=== PATIENT | female | born 1985 | race Caucasian/White ===

== ENCOUNTER 2017-02-12 10:01 | Emergency (ER) | payer OTHER ==
[2017-02-12 10:28] VITALS: TEMP 98.2
[2017-02-12] MEDS ORDERED: METOCLOPRAMIDE 10 MG/2 ML VIAL IVP ONE (10:29)
[2017-02-12] MEDS ORDERED: NS 1,000 ML IV ONE ×2 (10:29→11:03)
[2017-02-12] MEDS ORDERED: METOCLOPRAMIDE 10 MG/2 ML VIAL ONE (10:30)
[2017-02-12 10:36] LABS: % IMMATURE GRANULYOCYTES 0.5 % (0.0-1.1); ABSOLUTE IMMATURE GRANULOCYTES 0.02 10^3/uL (0.00-0.10); ADD DIFF? NO; ADD MORPH? NO; ADD SCAN? YES; ATYPICAL LYMPHOCYTE FLAG 0 (0-99); FRAGMENT RBC FLAG 0 (0-99); HEMATOCRIT 45.5 % (38.0-47.0); HEMOGLOBIN 15.8 g/dL (12.6-16.3); LIPEMIA HEMOLYSIS FLAG 90 (0-99); MEAN CELL HEMOGLOBIN 30.8 pg (27.9-34.1); MEAN CELL HEMOGLOBIN CONCENTR. 34.7 g/dL (32.4-36.7); MEAN CELL VOLUME 88.7 fL (81.5-99.8); PLATELET CLUMPS FLAG 0 (0-99); PLATELET COUNT 295 10^3/uL (150-400); RED BLOOD CELL COUNT 5.13 10^6/uL (4.18-5.33)
--- NOTE | 2017-02-12 10:50 | UCPHY ---
H & P Patient Type: New Chief Complaint Nursing Narrative: nausea vomiting and diarrhea since Time Seen by Provider: 02/12/17 10:04 HPI/ROS: CHIEF COMPLAINT: Nausea, vomiting and diarrhea History by patient HISTORY OF PRESENT ILLNESS: 31-year-old woman presents with 3 days of vomiting and diarrhea. Patient states it began with vomiting and this is improved but now she is having copious, nonbloody diarrhea. She took some Zofran at home with some relief of the nausea. She was seen in urgent care last night and told they would put an IV in her but they were about to close. She has been drinking Pedialyte at home to rehydrate. She has been having difficulty eating because she has no appetite. She complains of crampy abdominal pain associated with the diarrhea. She has no known ill exposures and has not been on recent antibiotics however she works as an ICU nurse. She denies any fever but also has body aches. REVIEW OF SYSTEMS: As in HPI, and all other systems reviewed and are negative Source: Patient - Personal History LMP (Females 10-55): 8-14 Days Ago Current Tetanus/Diphtheria Vaccine: Yes Current Tetanus Diphtheria and Acellular Pertussis (TDAP): Yes Tetanus Vaccine Date: last 10 years - Medical/Surgical History Hx Asthma: No Hx Chronic Respiratory Disease: No Hx Diabetes: No Hx Cardiac Disease: No Hx Renal Disease: No Hx Cirrhosis: No Hx Alcoholism: No Hx HIV/AIDS: No Hx Splenectomy or Spleen Trauma: No Other PMH: normally healthy per pt - Family History Significant Family History: No pertinent family hx - Social History Smoking Status: Never smoked Additional Social History: ICU nurse, here with her partner - Physical Exam Exam: General Appearance: Alert, slightly uncomfortable appearing. Eyes: Pupils equal and round no pallor or injection. ENT, Mouth: Mucous membranes slightly dry Respiratory: Normal, effort, There are no retractions, lungs are clear to auscultation. Cardiovascular: Regular rate and rhythm. Gastrointestinal: Abdomen is soft and nontender, no masses, bowel sounds decreased but present. Neurological: Awake, alert and oriented x 3, no pronator drift, normal gait, no pronator drift Skin: Warm and dry, no rashes. Musculoskeletal: Neck is supple nontender. Extremities are symmetrical, full range of motion. Psychiatric: Patient has normal affect, there is no agitation. Constitutional: Initial Vital Signs Temperature (C) 36.8 C 02/12/17 10:25 Heart Rate 104 H 02/12/17 10:25 Respiratory Rate 18 02/12/17 10:25 Blood Pressure 102/69 02/12/17 10:25 O2 Sat (%) 96 02/12/17 10:25 O2 Delivery Mode Room Air Allergies/Adverse Reactions: No Known Allergies Allergy (Unverified 02/12/17 10:28) Home Medications: Medication Instructions Recorded NK [No Known Home Meds] 02/12/17 Medical Decision Making ED Course/Re-evaluation: 31-year-old ICU nurse presents with 4 days of nausea, vomiting and copious diarrhea. Clinically the patient appears dehydrated. She was given bolus of IV fluids with improvement in her tachycardia. Labs are unremarkable. Stool was sent for stool pathogens and C difficile and results are pending at time of discharge. Patient was feeling better. She was discharged home and will follow up with her if C difficile toxin is positive. Patient understands and is agreeable to this plan. - Data Points Laboratory Results: Laboratory Results 02/12/17 10:25 02/12/17 10:25 02/12/17 02/12/17 02/12/17 10:30 10:25 10:25 WBC 3.80 10^3/uL 10^3/uL (3.80-9.50) RBC 5.13 10^6/uL 10^6/uL (4.18-5.33) Hgb 15.8 g/dL g/dL (12.6-16.3) Hct 45.5 % % (38.0-47.0) MCV 88.7 fL fL (81.5-99.8) MCH 30.8 pg pg (27.9-34.1) MCHC 34.7 g/dL g/dL (32.4-36.7) RDW 12.0 % % (11.5-15.2) Plt Count 295 10^3/uL 10^3/uL (150-400) MPV 9.0 fL fL (8.7-11.7) Neut % (Auto) 76.6 % H % (39.3-74.2) Lymph % (Auto) 15.3 % % (15.0-45.0) [place] % (Auto) 7.1 % % (4.5-13.0) Eos % (Auto) 0.0 % L % (0.6-7.6) Baso % (Auto) 0.5 % % (0.3-1.7) Nucleat RBC Rel Count 0.0 % % (0.0-0.2) Absolute Neuts (auto) 2.91 10^3/uL 10^3/uL (1.70-6.50) Absolute Lymphs (auto) 0.58 10^3/uL L 10^3/uL (1.00-3.00) Absolute Monos (auto) 0.27 10^3/uL L 10^3/uL (0.30-0.80) Absolute Eos (auto) 0.00 10^3/uL L 10^3/uL (0.03-0.40) Absolute Basos (auto) 0.02 10^3/uL 10^3/uL (0.02-0.10) Absolute Nucleated RBC 0.00 10^3/uL 10^3/uL (0-0.01) Immature Gran % 0.5 % % (0.0-1.1) Seg Neutrophils % 24 % % Band Neutrophils % 45 % % Lymphocytes % 25 % % Monocytes % 6 % % Immature Gran # 0.02 10^3/uL 10^3/uL (0.00-0.10) Absolute Seg Neuts 0.9 K/MM3 L K/MM3 (1.8-7) Absolute Band Neuts 1.7 K/MM3 H K/MM3 (0-0.7) Absolute Lymphocytes 1.0 K/mm3 K/mm3 (1.0-4.8) Absolute Monocytes 0.2 K/mm3 K/mm3 (0-0.8) Platelet Estimate ADEQUATE (ADEQ) Sodium 136 mEq/L mEq/L (134-144) Potassium 4.1 mEq/L mEq/L (3.5-5.2) Chloride 98 mEq/L mEq/L (97-110) Carbon Dioxide 22 mEq/l mEq/l (22-31) Anion Gap 16 mEq/L mEq/L (8-16) BUN 10 mg/dL mg/dL (7-23) Creatinine 0.8 mg/dL mg/dL (0.6-1.0) Estimated GFR > 60 Glucose 106 mg/dL H mg/dL (70-100) Calcium 9.1 mg/dL mg/dL (8.5-10.4) C. difficile Tox (PCR) Pending Medications Given: Discontinued Medications Sodium Chloride (Ns) 1,000 mls @ 0 mls/hr IV ONCE ONE PRN Reason: Wide Open Stop: 02/12/17 10:30 Last Admin: 02/12/17 10:29 Dose: 1,000 mls Sodium Chloride (Ns) 1,000 mls @ 0 mls/hr IV ONCE ONE PRN Reason: Wide Open Stop: 02/12/17 11:04 Last Admin: 02/12/17 11:04 Dose: 1,000 mls Metoclopramide HCl (Reglan Injection) 10 mg IVP EDNOW ONE Stop: 02/12/17 10:30 Last Admin: 02/12/17 10:30 Dose: 10 mg Departure - Departure Disposition: Home, Routine, Self-Care Clinical Impression: Diarrhea Qualifiers: Diarrhea type: presumed infectious Qualified Code(s): A09 - Infectious gastroenteritis and colitis, unspecified Condition: Good Instructions: Acute Diarrhea (ED) Additional Instructions: You were seen by Dr. Thelma Goldsmith today. Return for any worsening or new concerns. Continue drink plenty of fluids. We will contact you if your stool sample is positive for C difficile. Referrals: NONE *PRIMARY CARE P,. [Primary Care Provider] - As per Instructions - PQRS PQRS Measurement: NA
[2017-02-12 10:51] LABS: LEFT SHIFT FLG 300 (0-99)
[2017-02-12 10:55] LABS: ANION GAP 16 mEq/L (8-16); CALCIUM 9.1 mg/dL (8.5-10.4); CARBON DIOXIDE 22 mEq/l (22-31); CHLORIDE 98 mEq/L (97-110); CREATININE 0.8 mg/dL (0.6-1.0); GLOMERULAR FILTRATION RATE > 60; GLUCOSE 106 mg/dL (70-100); POTASSIUM 4.1 mEq/L (3.5-5.2); SODIUM 136 mEq/L (134-144)
[2017-02-12 11:04] VITALS: RESP 16
[2017-02-12 11:46] LABS: SCAN POSITIVE
[2017-02-12 11:54] LABS: PLATELET ESTIMATE ADEQUATE (ADEQ)
[2017-02-12 12:17] VITALS: BP 117/68; PULSE 90; O2SAT 99
== END 2017-02-12 12:16 | disposition home or self-care (01) ==
LOC: CED 10:01
DX: R19.7 Diarrhea, unspecified (principal); R11.2 Nausea with vomiting, unspecified; R00.0 Tachycardia, unspecified
CPT/HCPCS: 80048-PO; 85025-PO; 96361-PO; 96374-PO; 99204-PO; G0463-PO; J2765

== ENCOUNTER 2018-04-07 09:47 | Inpatient (IN) | payer OTHER ==
[2018-04-07] MEDS ORDERED: LORazepam 2 MG/ML INJ IVP ONE ×2 (10:07→15:30)
[2018-04-07 10:18] LABS: PLATELET COUNT 302 10^3/uL (150-400)
--- NOTE | 2018-04-07 10:22 | EDPHY ---
H & P Time Seen by Provider: 04/07/18 09:57 HPI/ROS: HPI Suicidal ideation, panic attack. 32-year-old female by private vehicle with her fiance. This patient has a history of panic attacks. They have been ongoing for several months. She was prescribed Lexapro 5 mg daily about 6 weeks ago. She reports that the Lexapro has been making her more panicked an feeling suicidal. These feelings have significantly increased over the last 2 days. She has not taken Lexapro for the last 2 days. She is an ICU nurse at [employer]. She has been feeling suicidal and describes having thoughts in her head which she does not want. She states that she has a plan to kill herself. She reports that her boyfriend is going away on a bachelor libertarian this weekend. She was going to steal some insulin from working overdose on insulin. ROS: Constitutional: No fever, no chills. No weakness. Eyes: No discharge. No changes in vision. ENT: No sore throat. No nasal congestion or rhinorrhea. Respiratory: No cough. No shortness of breath. Cardiac: No chest pain, no palpitations. Gastrointestinal: No abdominal pain, no vomiting, no diarrhea. Genitourinary: No hematuria. No dysuria or increased frequency with urination. Musculoskeletal: No back pain. No neck pain. No myalgias or arthralgias. Skin: No rashes. Neurological: No headache. No focal weakness or altered sensation. Past medical history: Panic attacks, IUD. Social history: Nonsmoker. Drinks alcohol socially. As above. Her fiancee brought her to the emergency department. Denies IV drugs or street drugs. Physical Exam: General Appearance: Alert, very panic, emotionally labile, hyperventilating. This patient is responding to questions appropriately and in full sentences. This patient appears well-hydrated and well-nourished. Eyes: Pupils equal and round no pallor or injection. No lid edema, erythema or injection. ENT, Mouth: Mucous membranes are moist. The pharyngeal tissues are unremarkable. No edema or swelling. No asymmetry suggestive of abscess. No erythema or exudates. Respiratory: There are no retractions, lungs are clear to auscultation with good air movement bilaterally. Hyperventilating. Cardiovascular: Regular rate and rhythm. No murmur. Gastrointestinal: Abdomen is soft and nontender, no masses, bowel sounds normal. No focal tenderness at McBurney's point. No Palomino sign. Neurological: Motor sensory function is grossly intact. Cranial nerves are normal. Gait is normal. Skin: Warm and dry, no rashes. Musculoskeletal: Neck is supple and nontender. Extremities are symmetrical. All joints range without pain or impingement. Psychiatric: As above. Database: EKG: Imaging: Procedures: Emergency department course: Vital signs reviewed. She is moderately hypertensive and tachypneic secondary to panic attack. Vital signs otherwise normal. IV placed. Appropriate blood work sent. I placed her on a detainer at 10:20 a.m.. She will be placed on an M1 hold shortly for suicidal ideation. She was given 0.5 mg of IV Ativan. This will be repeated as needed for anxiety reaction. Differential Diagnosis: The differential diagnosis on this patient includes but is not limited to medication reaction, suicidal ideation, major depression, situational depression , panic attack. This represents a partial list of diagnoses considered. These considerations are based on history, physical exam, past history, reassessment and diagnostic testing. Smoking Status: Never smoked Constitutional: Initial Vital Signs Temperature (C) 36.3 C 04/07/18 09:52 Heart Rate 75 04/07/18 09:52 Respiratory Rate 28 H 04/07/18 09:52 Blood Pressure 145/97 H 04/07/18 09:52 O2 Sat (%) 99 04/07/18 09:52 O2 Delivery Mode Room Air Allergies/Adverse Reactions: No Known Allergies Allergy (Verified 04/07/18 09:50) Home Medications: Medication Instructions Recorded Ativan 04/07/18 Lexapro 04/07/18 MIRENA 04/07/18 Medical Decision Making - Data Points Laboratory Results: Laboratory Results 04/07/18 10:10 04/07/18 04/07/18 04/07/18 10:10 10:10 10:10 WBC 6.01 10^3/uL 10^3/uL (3.80-9.50) RBC 5.01 10^6/uL 10^6/uL (4.18-5.33) Hgb 15.3 g/dL g/dL (12.6-16.3) Hct 43.7 % % (38.0-47.0) MCV 87.2 fL fL (81.5-99.8) MCH 30.5 pg pg (27.9-34.1) MCHC 35.0 g/dL g/dL (32.4-36.7) RDW 12.5 % % (11.5-15.2) Plt Count 302 10^3/uL 10^3/uL (150-400) MPV 8.8 fL fL (8.7-11.7) Neut % (Auto) 48.7 % % (39.3-74.2) Lymph % (Auto) 40.4 % % (15.0-45.0) [place] % (Auto) 8.7 % % (4.5-13.0) Eos % (Auto) 1.7 % % (0.6-7.6) Baso % (Auto) 0.5 % % (0.3-1.7) Nucleat RBC Rel Count 0.0 % % (0.0-0.2) Absolute Neuts (auto) 2.93 10^3/uL 10^3/uL (1.70-6.50) Absolute Lymphs (auto) 2.43 10^3/uL 10^3/uL (1.00-3.00) Absolute Monos (auto) 0.52 10^3/uL 10^3/uL (0.30-0.80) Absolute Eos (auto) 0.10 10^3/uL 10^3/uL (0.03-0.40) Absolute Basos (auto) 0.03 10^3/uL 10^3/uL (0.02-0.10) Absolute Nucleated RBC 0.00 10^3/uL 10^3/uL (0-0.01) Immature Gran % 0.0 % % (0.0-1.1) Immature Gran # 0.00 10^3/uL 10^3/uL (0.00-0.10) Sodium Pending Potassium Pending Chloride Pending Carbon Dioxide Pending Anion Gap Pending BUN Pending Creatinine Pending Estimated GFR Pending Glucose Pending Calcium Pending Beta HCG, Qual Pending Ethyl Alcohol Pending Medications Given: Discontinued Medications Lorazepam (Ativan Injection) 0.5 mg IVP EDNOW ONE Stop: 04/07/18 10:08 Last Admin: 04/07/18 10:13 Dose: 0.5 mg Departure - Departure Disposition: Other Psych, Not [facility] Clinical Impression: Panic attack, Suicidal ideation
[2018-04-07] MEDS ORDERED: MAG HYDROX/AL HYDROX/SIMETH 30 ML UDCUP PO PRN (18:47)
[2018-04-07] MEDS ORDERED: ACETAMINOPHEN 325 MG TAB PO PRN (18:47)
[2018-04-07] MEDS ORDERED: MAGNESIUM HYDROXIDE 30 ML UDCUP PO PRN (18:47)
[2018-04-08] MEDS: CHOLECALCIFEROL VIT D3 2,000 UNITS TAB/CAP PO SCH (08:23)
--- NOTE | 2018-04-08 09:55 | GCON ---
[f rep st] CONSULTATION DATE OF CONSULTATION: 04/08/2018 REASON FOR CONSULTATION: Medical opinion regarding stability for inpatient psychiatric hospitalizati on. HISTORY: The patient is a 32-year-old female, who was admitted from the emergency room last night. She has a history of panic disorder. She was recently started on Lexapro. The Lexapro has worsened her panic and she is now feeling suicidal. This escalated over the last 2 days. She is an ICU nurse at [employer]. She had a plan to steal insulin at work and use it to try to kill herse lf. She never did this and instead came to the emergency room. Upon presentation to the emergency r oom, she was hypertensive and tachycardic in an active panic attack. This responded to Ativan. PAST MEDICAL HISTORY: 1. Panic disorder. 2. Vitamin D deficiency. MEDICATIONS: Please see computer record for full detailed list. ALLERGIES: No known drug allergies. SOCIAL HISTORY: No smoking. Social alcohol. She is an ICU nurse. Her fiancee brought her to the E R. REVIEW OF SYSTEMS: A complete review of systems obtained. Review of systems negative for constituti onal, HEENT, GI, pulmonary, cardiovascular, , hematology, skin, endocrine, psych, except for positi ves and negatives as in HPI. FAMILY HISTORY: Reviewed, noncontributory to presenting complaint. PHYSICAL EXAMINATION: GENERAL: Well-developed, well-nourished female, no acute distress. She is te arful, but not in any physical distress. VITAL SIGNS: Temp is 36.8, pulse is 51, blood pressure 106 /57, saturating 96% on room air. EYE Examination: Normal conjunctivae, pupils are equal react to li ght. ENT: Normal ears and nose. Hearing intact. Normal teeth. Oropharynx moist. NECK: Trachea midline. No thyromegaly. CHEST: Normal respiratory effort. LUNGS: Clear to auscultation bilatera lly. CARDIOVASCULAR: Regular rate and rhythm. No murmur. No lower extremity edema. ABDOMEN: Sof t, nontender. No hepatosplenomegaly. SKIN: Warm, dry, intact. No rash. MUSCULOSKELETAL: No cyan osis or clubbing. Strength 5/5 upper and lower extremities. NEUROLOGIC: Cranial nerves intact. No rmal sensation to light touch. PSYCHIATRIC: Alert and oriented x3. Tearful but appropriate, flip ative. Normal judgment and insight. Normal memory. LABORATORY DATA: White count 6.1, hematocrit 43.7, platelets 302. Sodium 141, potassium 4.3, chlori de 104, bicarb 22, BUN 16, creatinine 0.9, glucose 95, Tox screen is negative. Beta HCG is negative. MEDICAL RECORD REVIEW: I reviewed medical records including all documentation up until this point of her hospitalization. She presented to the ER yesterday morning at 10:00 am. Details of her hospita lization have been summarized above. ASSESSMENT/PLAN: 1. Suicidal ideation with associated panic disorder. She is now an inpatient psych and is medically appropriate to continue. I do not see any active medical conditions at this time that would prohibi t this. 2. Vitamin D deficiency. This was diagnosed by her primary care provider with a low vitamin D level . She should continue her vitamin D supplement during her stay. 3. Tachycardia and hypertension. This was clearly due to her panic attack as it is now resolved. T he patient is currently normotensive. Thank you very much for this consultation. Please re-consult Internal Medicine if any new medical is sues do arise. /[id number]/MODL
--- NOTE | 2018-04-08 14:01 | BAPA ---
[f rep st] ADMISSION PSYCHIATRIC ASSESSMENT DATE OF SERVICE: 04/08/2018 CHIEF COMPLAINT: "I had panic attacks last night and I don't trust myself. I started having panic attacks a few months ago, but since then I was prescribed and started Lexapro. I have had more panic attacks, and now for the past 2 weeks, I have been having suicidal thoughts." HISTORY OF PRESENT ILLNESS: The patient is a 32-year-old woman who presented to the emergency department with her and a friend. The patient had gone to see her primary care physician on Tuesday morning, 2017, described her symptoms. After her visit with the PCP, it was recommended that the patient come to the ED for a psychiatric evaluation. The patient states that over the last several months since she started taking Lexapro which was prescribed by her PCP she has had increased anxiety, more panic, and states that she started having suicidal thoughts over the past several weeks. 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 She says that she stopped taking the Lexapro several days ago. When this MD met with the patient on the inpatient behavioral services unit on , the patient denied having current thoughts of suicide, that she had no plan or intent to hurt herself or anyone else. MD met with the patient in her room with the clinical care coordinator, Kimberly, present as well as the patient's and a personal friend who were here for visiting. On the unit, the patient has been attending groups, eating well. She said that she slept 8 hours last night which was better sleep then she has been getting prior to admission. She says that getting the Ativan in the emergency department helped her to relax and has helped her to feel less anxious and to get better sleep. The patient says that she is very sensitive to medications and that medications "really mess with me. " She says that was the reason that she had taken low doses of Lexapro. She was only on 5 mg, but even that dose she said was intolerable due to increased anxiety, nausea, vomiting, and increased thoughts of suicide. The patient had also been prescribed Ativan 0.5 to 2 mg p.r.n. by her PCP, but she says she was reluctant to take the Ativan and was only taking a quarter of a tablet. The patient says that the Lexapro was making her throw up every morning after she took it which is a similar side effect that she has had with other SSRIs in the past. The patient says that she would rather not be taking any medications, says that she wants to "try other ways" of managing her anxiety. She says that she has been doing things like yoga, meditation, and relaxation techniques such as deep breathing, but says that over the last several weeks things have just gotten worse. She says she is not sure if it is because of the Lexapro or if they would have gotten worse even if she had not been taking the SSRI. She does admit that she is under a lot of stress due to her upcoming wedding ceremony which is happening at the end of this month. The patient says that her mood is better today after getting a good night's sleep and seeing her . She says that she does not feel as anxious or depressed. She denies feeling sad, hopeless, helpless, or worthless. She denies any thoughts, plans, or intents to hurt herself or anyone else. PAST PSYCHIATRIC HISTORY: The patient was diagnosed with seasonal affective disorder about 7 years ago when she was living in [place]. During that time, she took Effexor which she says she was on for 2-1/2 years, but stopped taking Effexor 4 years ago when she moved to [place]. She says that she had been doing well, not having any symptoms of depression until a few months ago. She says she was prescribed 5 mg of Lexapro by her PCP about 6 weeks ago and given Ativan p.r.n. for anxiety. She says she is reluctant to take medications because she usually suffers more serious side effects from medications than other people. She says she has taken Zoloft in the past, but was extremely nauseous. She says since she started on the Lexapro she usually throws up every morning after she takes it and says that she also had the same feelings of nausea and increased vomiting even when she was on Effexor. The patient says that she saw a therapist when she was initially diagnosed with depression about 7 years ago when in [place], but does not currently have a therapist. She is also not seeing a psychiatrist. She has always gotten her antidepressant medications from her primary care physician. The patient denies any prior suicide attempts. She has never been hospitalized in a psychiatric facility. Currently, the patient has no mental health provider. She got her Lexapro prescription from her primary care doctor. She stopped taking it several days ago. ALLERGIES: The patient has no known drug allergies. CURRENT MEDICATIONS: Currently, the patient is only taking vitamin D3 2000 units daily. LABORATORIES: Done in the [facility] ED. Her white cell count was 6.01, hemoglobin 15.3, hematocrit 43.7, platelet count 302. Sodium 141, potassium 4.3 , chloride 104, BUN 16, creatinine 0.9, glucose 95. Beta hCG was negative. Urine drug screen was negative for all substances of abuse. Ethyl alcohol was less than 10. PAST MEDICAL HISTORY: The patient denies any chronic medical conditions. She denies any past surgical history. SOCIAL HISTORY: The patient was 3 months ago, but she says that she and her are planning a wedding ceremony at the end of April. They have no children. She lives together with her , and they have adopted a Labrador Retriever puppy that they are training to be a service animal for sight -impaired people. The patient's parents live in [place]. She has 2 older brothers who live out of state. She says that she has friends, coworkers, and family who are supportive. The patient has graduated with a bachelor's degree in nursing. She is has worked full-time at [employer] for 3 years. Recently, she has been working as an ICU nurse, 12 hour shifts. She says that her job is very stressful, that she has had difficulty managing the stress at work recently when she has been more depressed and anxious. The patient tries to manage her anxiety with regular exercise. She also does yoga and meditation to help relax. FAMILY HISTORY: The patient says that her paternal aunt was an alcoholic and she had a paternal uncle with a heroin addiction. She denies any other mental illness or substance use disorders in the family. SUBSTANCE ABUSE HISTORY: Patient says that she started smoking marijuana when she was in high school and used it on a regular basis. She says that when she started college she stopped smoking pot. The patient denied any other substance use until a few days ago. She said she started using marijuana again as a means of reducing stress. She also says that over the past few weeks she has increased her alcohol consumption. Says that for several weeks she has been drinking between 1-4 drinks per night on a daily basis. TRAUMA HISTORY: Patient denies any history of emotional, physical, or sexual abuse. LEGAL HISTORY: Patient denies any legal issues. MENTAL STATUS EXAMINATION: This is a tall, well-developed, appropriately groomed woman sitting on her bed with her and their service puppy in the room. optometric coordinator Kimberly is also present as well as a family friend. The patient is alert and oriented x4. Her affect is euthymic. She is pleasant and cooperative. She makes good eye contact. Her speech rate and volume are both normal. She denies feeling sad, helpless, hopeless, worthless, or anxious this morning. She denies having any panic episodes since she has been admitted. She denies any thoughts plans or intents to hurt herself or anyone else. She also denies any psychotic symptoms. There is no evidence of tate or psychosis. Her thought process is linear and goal directed. Her intellectual function appears to be average based upon her vocabulary, fund of knowledge, education, and work history. Her insight and judgment are both fair. IMPRESSION: 1. Major depressive disorder, recurrent, severe. 2. Generalized anxiety disorder. 3. Panic disorder without agoraphobia by history. 4. Rule out substance induced mood disorder. 5. Cannabis use disorder, unknown severity. 6. Alcohol use disorder, unknown severity. 7. Recent marriage, upcoming wedding ceremony that is adding a lot of stress for the patient. 8. Work related stress. The patient works as an ICU nurse at [employer]. 9. Lack of mental health services. PLAN: 1. Admit patient to the inpatient Behavioral Health Services Unit on [address] on an M1 hold. 2. Monitor closely for safety. The patient is currently not exhibiting any unsafe behaviors. She is able to contract for safety. She denies any thoughts , plans, or intent to harm herself or anyone else. 3. Continue to monitor and observe the patient. Currently, the patient is saying that she feels "much better." She is denying feeling depressed or anxious. She reports that she slept "the best" last night that she has in several weeks. 4. The patient states that she would prefer not to take any medications because all of the antidepressants and antianxiety medication she has taken in the past "really messed me up." She reports chronic nausea and vomiting on SSRIs as well as on Effexor. The patient states that she would prefer to try "alternative methods" to manage her stress, anxiety, and mood. The clinical care coordinator, Kimberly, talked to the patient at length about dialectical behavioral therapy and the outpatient DBT group that meets at [facility]. The patient said that she would very much be interested in that. The patient is currently on FMLA from her job, so she has the time to attend group 3 times a week and says that is something she would like to pursue. MD and Bark Press Operator also recommended that the patient get connected with outpatient mental health services. Bark Press Operator said that she would provide the patient referrals for individual therapists which she could also get through the outpatient clinic at [facility]. The patient said she would be interested in doing that and working on some more stress reduction techniques as well as addressing some of the social stressors that have been exacerbating her anxiety and feeding her depression over the last several weeks. MD did talk to the patient at length about the risks, benefits, and side effects of antidepressants including SSRIs and SNRIs. The only type of antidepressant the patient has tried is Wellbutrin. So, the MD talked about how Wellbutrin was different than the SSRIs and the SNRIs. The MD also emphasize that the SSRIs, SNRIs, and Wellbutrin were the first-line treatment for anxiety disorders. In addition to being antidepressants, they are anxiolytics. The patient states that she does not like to take medications if she does not have to and says that she would like to try other methods of reducing stress and alleviating her anxiety and thinks that this would go a long way toward improving her mood. Says that she is also worried that antidepressants recently have caused her to have increased suicidal thoughts, and she wants to avoid taking any type of antidepressant. said that this is something that the patient could reconsider in the future. If she decides to pursue cognitive behavioral therapy or other types of treatment for stress reduction and is followed by an outpatient therapist, her therapist could refer her to a psychiatrist if and when the patient and/or the therapist felt like medications would be appropriate or necessary. The patient said that she would be willing to consider going back on medications at some point in the future, but would like to try individual and group therapy first. 5. Estimated length of stay is 2-3 days. Bark Press Operator is working on providing the patient a followup and will schedule an intake evaluation in the [facility] outpatient Clinic for both individual and DBT group therapy. /[id number]/MODL MTDD
[2018-04-09] MEDS: LORazepam 0.5 MG TAB PO PRN ×2 (01:08→20:14)
[2018-04-09] MEDS: CHOLECALCIFEROL VIT D3 2,000 UNITS TAB/CAP PO SCH (08:34)
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
[2018-04-10 06:30] VITALS: BP 128/54
[2018-04-10] MEDS: CHOLECALCIFEROL VIT D3 2,000 UNITS TAB/CAP PO SCH (08:28)
--- NOTE | 2018-04-10 18:35 | BDS ---
[f rep st] BEHAVIORAL HEALTH DISCHARGE SUMMARY Date of admission: 04/07/18 Date of discharge: 04/10/18 REASON FOR ADMISSION: May be found in the [facility] evaluation dated 04/07/2018, at 1642 hours. You also may find information regarding reason for admission in ED note dated 04/07/2018, and also, the psychiatric assessment and history dated , by Dr. Dunham. Per [facility] report, the patient reported that she had a panic attack last night and did not trust herself. She started having panic attacks a few months ago and started taking Lexapro and reported that she continued to have more panic attacks, and over the last few weeks, she has been having suicidal thoughts. She said that she has tried everything and nothing worked and so she sought help due to her suicidal ideation. ADMISSION DIAGNOSES: panic disorder, suicidal ideation. PHYSICAL EXAMINATION: On admission, the patient was seen for a physical exam on 04/07/2018, at 0957. The patient was cleared medically to be admitted for inpatient psychiatric care. Please see the ED short dictation for further information regarding the physical exam. ADMISSION LABORATORY DATA: Hematology 04/07/2018, was within normal limits. Chemistry 04/07/2018, within normal limits. test negative. Toxicology was negative for all substances. HOSPITAL COURSE: The most prominent symptoms and behaviors while the patient was here were the following: Symptoms of anxiety and the patient reported a history of panic attacks. MENTAL STATUS EXAMINATION: At admission, this is a tall well-developed, appropriately groomed woman sitting on her bed with her and their service puppy in the room. Gis Developer, Kimberly, is also present as well as a family friend. The patient is alert, oriented x4. Her affect is euthymic. She is pleasant and cooperative. She makes good eye contact. Her speech rate and volume are both normal. She denies feelings of sad, helpless, hopeless, worthless, or anxious this morning. She denies having any panic episodes since she has been admitted. She denies any thoughts, plans , or intent to hurt herself or anyone else. She also denies any psychiatric symptoms. There is no evidence of tate or psychosis. Her thought process is linear and goal directed. Her intellectual function appears to be average based upon her vocabulary, fund of knowledge, education, work history. Her insight and judgment are both fair. TARGET SYMPTOMS DURING HOSPITALIZATION: Panic and anxiety symptoms. PLAN OF TREATMENT: Modalities utilized were as follows: 1. Milieu and group therapy. 2. Ativan 0.5-1 mg p.o. q.4 h. p.r.n. was started to target anxiety symptoms. Was tolerated with no report of side effects and with good response. The patient reported that she was prescribed Ativan on an outpatient basis and was at 0.5 mg p.o. daily p.r.n. and her primary care provider recommended that she take the medication as needed for panic attacks. The patient has improved considerably with no signs of psychiatric symptoms and no psychiatric symptoms expressed. Patient reports she has improved since her admission. States to be in stable condition. Feels safe to discharge and contract for safety. Patient's response to treatment was good. There were no adverse or unexpected results of treatment. The patient was safe throughout her stay, active in her treatment. Patient engaged in groups and was appropriate with staff. The treatment team consensus at the time of discharge is the patient is in stable condition and is safe to discharge today. CONDITION AT DISCHARGE: The patient is in stable condition, is no longer a danger to herself or others, and is not gravely disabled due to mental illness. Patient is no longer in need of inpatient level of care and can be safely and effectively treated within the community. The patient's level of risk at time of discharge is low based on the risk assessment following this discharge summary below. MENTAL STATUS EXAMINATION: The patient is casually dressed and with good hygiene and looks stated age. Patient is sitting, posture is upright , and position is relaxed. The patient appears awake, alert, and responds appropriately and reasonably during interview. Patient is engaged, relates well to interviewer, and emotional facial expression is appropriate to situation and changes appropriately with topic. Patient is cooperative, makes comfortable eye contact, and movements are voluntary, deliberate, coordinated, and smooth, and even with no inappropriate movements. Patient makes laryngeal sounds effortlessly and shares conversation appropriately. Pace of conversation is appropriate and stream of talking is fluent. Articulation is clear and understandable. Word choice is effortless and appropriate for education level. Patient complete sentences, occasionally pausing to think. Rate and volume are appropriate for interview and setting. Patient reports mood as euthymic. Patient's affect is stable and full, variable range congruent with mood, and appropriate to speech and circumstances. Patient has linear, logical thinking with no loose associations, tangential thought, thought blocking, concrete thinking, or any other signs of formal thought disorder. Patient denies suicidal and homicidal ideation and denies hallucinations and delusions. The patient appears to be a reliable historian with sound judgment and good insight into her condition. Patient has no apparent dysfunction in recent or remote memory noted and no evidence of gross cognitive function noted at any point during the discharge interview. DISCHARGE DIAGNOSIS: Panic disorder. DISCHARGE MEDICATIONS: Klonopin 0.25 to 0.5 mg p.o. at bedtime. Patient requests RX for #21 0.5 mg tablets and states she plans to follow-up with outpatient psychiatric provider. RX provided per patient request at time of discharge. This interviewer provided medication education to both patient and patient's fiance during family meeting prior to discharge. DISPOSITION: The patient will return home with her fiancee. The patient's fiance arrived today to pick her up at discharge. FOLLOWUP: The transitional care nurse reports the appropriate outpatient followup services have been established and outpatient appointments have been scheduled. sales account coordinator met with the patient prior to her discharging to review the recommendations and referrals for outpatient, including DBT and CBT and the patient reports that she will make this phone call to schedule these appointments. The patient received written instructions and times and dates of outpatient followup appointments. The following followup recommendations were provided to the patient at discharge : 1. Continue psychotropic medications as prescribed and attend appointments as scheduled. 2. Report any side effects to a psychiatric outpatient provider, a primary care provider, or other healthcare professional. 3. Address any questions or problems concerning psychotropic medications with the psychiatric outpatient provider, a primary care provider, or other healthcare professional. 4. Contact [facility] or [facility] or go to the nearest emergency room if you are ever a danger to yourself, others or unable to care for yourself. 5. As soon as possible establish routine medication management treatment with a psychiatric provider, establish routine therapy appointments and follow up with a primary care provider. LEGAL COURSE: Patient was admitted on a M1 hold due to being a danger to herself. Patient did sign in for voluntary hospitalization and patient discharged today independently and voluntarily. ATTITUDE AT TIME OF DISCHARGE: The patient's attitude was positive at time of discharge and patient reports looking forward to discharging today. The patient reports she feels safe to discharge, is no longer a danger to herself or others, is in stable condition, and contracts for safety. The patient states she will continue medications as prescribed and established medication management treatment with an outpatient provider after discharge. The patient reports she understands the information provided to her and she understands accepts and agrees to psychotropic medication. The patient reports internal protective factors as the coping skills she has learned while hospitalized here and she plans to continue to practice these coping skills after discharge. Patient reports she also plans to continue therapy to build more coping skills in CBT and DBT after discharge. Patient reports external protective factors as her future with her , her family, friends, plans to travel, and just in general looking forward to her future. Patient describes looking forward to taking a shower in her own room bathroom, going for a hike, sleeping in her own bed, and going out to dinner with her fiance, playing with her dog, and spending time with her fiance after discharge. The patient describes future plans as getting April 29, 2018 , rafting the [place] this July for 3 weeks. Patient reports her family and friends look forward to her discharging today. Patient's fiancee reports patient is safe to discharge today and he agrees with the patient discharging today. The patient and the patient's boyfriend met with this interviewer today to review the outpatient plans, medication education, and to answer any questions that they had. Her fiancee appears to be very supportive, which will be therapeutic for the patient in her ongoing treatment. PENDING LABORATORY/STUDIES: There were no pending labs or studies at the time of discharge. The following psychotropic medication treatment informed consent and recommendations were provided to the patient at time of discharge. Patient reports she/he understands, accepts, and agrees to the information that has been provided. PSYCHOTROPIC MEDICATION TREATMENT INFORMED CONSENT and RECOMMENDATIONS: Review nature of condition, diagnosis, and prognosis. Review nature and purpose of psychotropic medication treatment. Review type of psychotropic medications being prescribed. Review risk and benefits of psychotropic medication treatment. Review probable length of time will need to take medications. Review risk and benefits of not undergoing psychotropic medication treatment. Review alternative treatments to psychotropic medications. Review psychotropic medications contraindications, side effects, and importance of reporting any side effects to a psychiatric provider, primary care provider, or other health medical care administrator. Review importance of her asking a psychiatric provider or primary care provider any questions or problems concerning the psychotropic medications. Review importance of reporting to a psychiatric provider, primary care provider, or other health medical care administrator if she plans to or becomes . Review safety plan and the importance to contact [facility] or [facility] , or go to the nearest emergency room, if ever a danger to yourself/others, or unable to care for yourself. Recommend upon discharge to establish routine medication management treatment with a psychiatric provider, establish routine therapy appointments, and follow-up with a primary care provider. Verify patient understands, accepts, and agrees to the information that has been provided. SUICIDE ASSESSMENT FIVE-STEP EVALUATION AND TRIAGE (1) RISK FACTORS: (a) Suicidal behavior: no history of suicide attempts; no history of plan or intent (b) Current/past psychiatric disorders: panic disorder (c) Chowdhury symptoms: mild anxiety (d) Family history: no family history (e) Precipitants/Stressors/Interpersonal: none (f) Change in treatment: discharge from psychiatric hospital (g) Access to firearms: none (2) PROTECTIVE FACTORS: (a) Internal: coping skills learned here (b) External: family, friends, and her future (see above) (3) SUICIDAL INQUIRY: (a) Ideation: none; last time was Tuesday prior to current admission (b) Plan: none (c) Behaviors: none (d) Intent: none (4) RISK LEVEL: Low: modifiable risk factors, strong protective factors; no report of suicidal or self-injurious ideation, no plans, and no intent. Intervention: treatment plan to reduce symptoms: medications and therapy, provided emergency/crisis numbers, follow-up plan for outpatient services. /[id number]/MODL MTDD
[2018-04-10] MEDS ORDERED: clonazePAM 0.5 MG TAB PO SCH (21:00)
== END 2018-04-10 13:13 | disposition home or self-care (01) | DRG 880 ==
LOC: BBEH 18:20
PROVIDERS: ADMIT Psychiatry & Neurology Psychiatry; ATTEND Registered Nurse
DX: F41.0 Panic disorder [episodic paroxysmal anxiety] (principal); F32.9 Major depressive disorder, single episode, unspecified; R00.0 Tachycardia, unspecified; I10 Essential (primary) hypertension; E55.9 Vitamin D deficiency, unspecified
CPT/HCPCS: 80305; 96374; G0480; J2060